=== PATIENT | male | born 1995 | race African-American/Black ===

== ENCOUNTER 2021-07-22 22:05 | Emergency (ER) | payer BC ==
[~2021-07-22] VITALS: Ht 182.9 cm; Wt 81.6 kg
[2021-07-22 22:24] VITALS: BP 124/75
[2021-07-22] MEDS ORDERED: FLUORESCEIN (FLUOR-I-STRIPS) 1 MG STRP OU ONE (22:45)
[2021-07-22] MEDS ORDERED: TETRACAINE 0.5% OPHTH SOLN 4 ML BTL (SINGLE DOSE ONLY) OU ONE (22:45)
[2021-07-22] MEDS ORDERED: BSS 15 ML IR ONE (22:45)
--- NOTE | 2021-07-22 22:54 | ED EENT ---
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 Allergies and Home Medications Allergies Coded Allergies: No Known Drug Allergies (Unverified , 07/22/21) Patient Home Medication List Home Medication List Reviewed: Yes Review of Systems Review of Systems Constitutional: no symptoms reported Eyes: See HPI Past Ypkpnff-Fuvydh-Kcegcn Hx Immunizations Up To Date Tetanus Booster (TDap): Unknown Past Medical History Surgeries: No Respiratory: No Cardiac: No Neurological: No Genitourinary: No Gastrointestinal: No Musculoskeletal: No Endocrine: No HEENT: No Cancer: No Psychosocial: No Integumentary: No Blood Disorders: No Physical Exam Vital Signs Vital Signs - First Documented 07/22/21 22:24 Temp 36.7 Pulse 71 Resp 18 B/P (MAP) 124/75 (91) Pulse Ox 98 O2 Delivery Room Air Height, Weight, BMI Height: '" Weight: lbs. oz. kg; BMI Method: General Appearance: WD/WN, no apparent distress Eyes: right eye other (RIGHT CONJUNCTIVA INFLAMED AND WATERING, NO PURULENT DRAINAGE. NO PERIORBITAL EDEMA OR ERYTHEMA. ) Procedures/Interventions Eye : Location: right eye Eye FB Removal: removal w/ needle Anesthesia (gtts): Tetracaine Progress/Procedure Conclusion FLUORESCEIN STAIN TO RIGHT EYE--NO ABRASION OR DYE UPTAKE PINPOINT FOREIGN BODY NOTED AT 6:00 ON CORNEA REMOVED WITH NEEDLE NO EVIDENCE OF RESIDUAL FOREIGN BODY NOTED. Progress/Results/Core Measures Results/Orders My Orders Orders - TANA LAKHANI DO Tetracaine 0.5% Ophth Sridevi Sdv (Tetracai (07/22/21 22:45) Fluorescein Strips ([id number]) (07/22/21 22:45) Balanced Salt Irrigation Soln (Bss Irrig (07/22/21 22:45) Erythromycin Ophth Oint (Erythromycin Op (07/23/21 00:00) Dipht,Pertuss(Acell),Tet Adult (Boostrix (07/22/21 23:00) Medications Given in ED Current Medications Medications Dose Ordered Sig/Eri Route Start Time Stop Time Status Last Admin Dose Admin Balanced Salt Solution 15 ml ONCE ONCE IR 07/22/21 22:45 07/22/21 22:46 DC 07/22/21 22:42 15 ML Diphtheria/ Tetanus/Acell Pertussis 0.5 ml ONCE ONCE IM 07/22/21 23:00 07/22/21 23:01 DC 07/22/21 23:08 0.5 ML Fluorescein Sodium 1 mg ONCE ONCE OU 07/22/21 22:45 07/22/21 22:46 DC 07/22/21 22:42 1 MG Tetracaine HCl 4 ml ONCE ONCE OU 07/22/21 22:45 07/22/21 22:46 DC 07/22/21 22:42 4 ML Vital Signs/I&O 07/22/21 22:24 Temp 36.7 Pulse 71 Resp 18 B/P (MAP) 124/75 (91) Pulse Ox 98 O2 Delivery Room Air Departure Impression Primary Impression: Foreign body of right cornea Additional Impression: Plrqjbohqn-jiccannox-olvzwha (DPT) vaccination administered at current visit Disposition: HOME, SELF-CARE Condition: Stable Departure-Patient Inst. Decision time for Depature: 22:50 Referrals: DEMI BONILLA OD Patient Instructions: Diphtheria and Tetanus Toxoids, and Acellular Pertussis Vaccine, Foreign Body in Eye ED Add. Discharge Instructions: DO NOT RUB YOUR EYE TYLENOL AND MOTRIN NEEDED FOR PAIN USE ANTIBIOTIC OINTMENT EVERY [address] UP WITH DR. CASTILLO'S OFFICE TOMORROW FOR FURTHER CARE--CALL FIRST THING IN THE MORNING TO SCHEDULE APPOINTMENT All discharge instructions reviewed with patient and/or family. Voiced understanding. TANA LAKHANI DO Jul 22, 2021 22:54
[2021-07-22] MEDS ORDERED: TETANUS,DIPTH,PERTUSS P/F (BOOSTRIX) 0.5 ML VIAL IM ONE (23:00)
[2021-07-23] MEDS ORDERED: ERYTHROMYCIN OPHTH OINT 1 GM (SINGLE USE) TUBE OP SCH
== END 2021-07-22 23:13 | disposition home or self-care (01) ==
LOC: ER 22:08
DX: T15.01XA Foreign body in cornea, right eye, initial encounter (principal); Z23 Encounter for immunization
CPT/HCPCS: 90715; 99284